=== PATIENT | male | born 1995 | race Caucasian/White ===

== ENCOUNTER 2019-05-16 19:46 | Emergency (ER) | payer MEDICAID ==
[~2019-05-16] VITALS: Ht 185.4 cm; Wt 95.0 kg
--- NOTE | 2019-05-16 20:25 | NUR ---
RN spoke to patient with [employer] process owner, Tariq. Patient has been at [facility] for 2-3 days and feeling stressed and anxious. Patient there for meth use but states he last used 1 month ago. Patient and [facility] Tariq stated patient has been through a lot of trauma but would now elaborate. Patient's mother is homeless and patient was living with his grandparents but states they never interacted with him. He said the don't "fucking love me or care about me." Patient has anxiety. Patient states he is here because he told a fellow resident at [facility] that sometimes he feels suicidal. Patient denies suicidal ideation now and states he has never attempted to harm himself. Patient states he is not on any meds. Patient was hospitalized once and they had him on Vistaril for anxiety. RN rec'd an order for Vistaril from Dr García. Continue to monitor.
[2019-05-16 21:39] LABS: URINE AMPHETAMINE SCREEN NEGATIVE (Neg); URINE BARBITUATE SCREEN NEGATIVE (Neg); URINE BENZODIAZEPINES SCREEN NEGATIVE (Neg); URINE CANNABINOID SCREEN NEGATIVE (Neg); URINE COCAINE SCREEN NEGATIVE (Neg); URINE METHADONE SCREEN NEGATIVE (Neg); URINE OPIATE SCREEN NEGATIVE (Neg); URINE PHENCYCLIDINE SCREEN NEGATIVE (Neg)
--- NOTE | 2019-05-16 21:40 | NUR ---
Patient fell asleep. No distress observed. Continue to monitor.
[2019-05-16 21:49] LABS: BASOPHILS % (AUTO) 0.4 % (0-1); EOSINOPHILS # (AUTO) 0.3 X10'3 (0-0.9); EOSINOPHILS % (AUTO) 2.7 % (0-6); HEMATOCRIT 42.6 % (42.0-52.0); HEMOGLOBIN 14.6 g/dl (14.0-17.9); LYMPHOCYTES # (AUTO) 3.2 X10'3 (1.1-4.8); LYMPHOCYTES % (AUTO) 34.3 % (21-51); MEAN CORPUSCULAR HEMOGLOBIN 30.1 PG (27.0-31.0); MEAN CORPUSCULAR HGB CONC 34.3 g/dL (33.0-36.5); MEAN CORPUSCULAR VOLUME 87.7 FL (78-98); MEAN PLATELET VOLUME 8.7 FL (7.4-10.4); MONOCYTES # (AUTO) 0.6 X10'3 (0-0.9); MONOCYTES % (AUTO) 6.7 % (2-12); NEUTROPHILS # (AUTO) 5.2 X10'3 (1.8-7.7); NEUTROPHILS % (AUTO) 55.9 % (42-75); PLATELET COUNT 250 X10'3 (140-440); RED BLOOD COUNT 4.85 X10'6 (4.70-6.10); WHITE BLOOD COUNT 9.4 X10'3 (4.5-11.0)
[2019-05-16 21:57] LABS: ALANINE AMINOTRANSFERASE 22 U/L (12-78); ALBUMIN/GLOBULIN RATIO 1.3 (1.1-1.5); ALKALINE PHOSPHATASE 53 IU/L (46-116); ANION GAP 8 (8-16); ASPARTATE AMINO TRANSFERASE 13 U/L (10-37); BILIRUBIN,TOTAL 0.1 MG/DL (0.1-1.0); BLOOD UREA NITROGEN 13 MG/DL (7-18); CALCIUM 8.9 MG/DL (8.5-10.1); CHLORIDE 106 MMOL/L (99-107); CREATININE 0.93 MG/DL (0.60-1.10); GLUCOSE 92 MG/DL (70-104); POTASSIUM 3.8 MMOL/L (3.5-5.1); SODIUM 142 MMOL/L (135-145); TOTAL CARBON DIOXIDE 28.1 MMOL/L (24-32); TOTAL PROTEIN 7.2 G/DL (6.4-8.2); eGFR > 90 ML/MIN
[2019-05-16 22:04] LABS: ETHANOL < 0.010 GM/DL (0.0-0.010)
[2019-05-16 22:08] LABS: ACETAMINOPHEN < 2.0 UG/ML (10-30)
--- NOTE | 2019-05-16 23:20 | NUR ---
Patient continues to sleep. No restlessness/distress observed. Continue to monitor.
--- NOTE | 2019-05-17 00:31 | NUR ---
Unable to fax packet to [facility] as pt's documentation not updated.
--- NOTE | 2019-05-17 01:01 | NUR ---
Patient sleeping supine. No restlessness observed. Continue to monitor.
--- NOTE | 2019-05-17 03:33 | NUR ---
Patient sleeping supine. No distress observed. Continue to monitor.
--- NOTE | 2019-05-17 05:04 | NUR ---
Patient sleeping on right side. No restless/distress observed. Continue to monitor.
[2019-05-17 05:45] VITALS: BP 112/61
--- NOTE | 2019-05-17 05:50 | NUR ---
Patient awoken for vital signs and talking to his neighbor. Patient wants medication for anxiety/sleep. Continue to monitor.
--- NOTE | 2019-05-17 06:28 | NUR ---
Packet sent to [facility]. Unable to confirm receipt of packet as out of business hours.
--- NOTE | 2019-05-17 06:38 | NUR ---
received report on this patient, patient currently in bed and randomnly yells out or talks to the next door patient through the curtain.
[2019-05-17] MEDS: hydrOXYzine 25 MG tablet PO PRN ×2 (10:03→17:10)
== END 2019-05-17 17:44 | disposition home or self-care (01) ==
LOC: ER 19:47
DX: R45.851 Suicidal ideations (principal); F32.9 Major depressive disorder, single episode, unspecified; F41.9 Anxiety disorder, unspecified; F29 Unspecified psychosis not due to a substance or known physiological condition; F17.200 Nicotine dependence, unspecified, uncomplicated; F15.90 Other stimulant use, unspecified, uncomplicated
CPT/HCPCS: 36415; 80053; 80305; 80320; 80329; 84443; 85025; 99284; Q0177; Z7610

== ENCOUNTER 2019-05-26 11:26 | Emergency (ER) | payer MEDICAID ==
[~2019-05-26] VITALS: Ht 188 cm; Wt 97.7 kg
[2019-05-26 11:49] VITALS: BP 147/76
[2019-05-26] MEDS ORDERED: azithromycin 250mg tablet PO ONE (12:35)
[2019-05-26] MEDS: penicillin G benzathine 1.2 million unit/2ml syringe IM SCH ×2 (12:40→12:57)
--- NOTE | 2019-05-26 12:44 | NUR ---
ASKED PATIENT NOT TO VAPE INSIDE THE HOSPITAL
[2019-05-26] MEDS ORDERED: DOXY100C43 PO (12:46)
[2019-05-26 13:13] LABS: CLARITY,URINE CLEAR (Clear); COLOR,URINE YELLOW (Yellow); GLUCOSE, URINE NEGATIVE (Neg); KETONES,URINE NEGATIVE (Neg); LEUKOCYTE ESTERASE ,URINE NEGATIVE (Neg); NITRITES, URINE NEGATIVE (Neg); OCCULT BLOOD,URINE NEGATIVE (Neg); PROTEIN,URINE NEGATIVE (Neg); UROBILINOGEN,URINE 0.2 E.U/dL (0.2-1.0)
[2019-05-26 13:18] LABS: UA COLLECTION TYPE CLN CATCH MIDSTREAM
--- NOTE | 2019-05-26 13:50 | NUR ---
PT REFUSED LAB DRAWS.
== END 2019-05-26 13:53 | disposition home or self-care (01) ==
LOC: ER 11:27
DX: R21 Rash and other nonspecific skin eruption (principal); F41.9 Anxiety disorder, unspecified; F32.9 Major depressive disorder, single episode, unspecified; F15.90 Other stimulant use, unspecified, uncomplicated; Z79.2 Long term (current) use of antibiotics
CPT/HCPCS: 36415; 81003; 87491; 87591; 99283; J0561

== ENCOUNTER 2019-07-24 12:51 | Emergency (ER) | payer MEDICAID ==
[~2019-07-24] VITALS: Ht 185.4 cm; Wt 99.0 kg
[2019-07-24] MEDS ORDERED: CIPR10DR LEFT EAR (14:05)
[2019-07-24 14:27] VITALS: BP 105/45
== END 2019-07-24 14:28 | disposition home or self-care (01) ==
LOC: ER 12:51
DX: H72.92 Unspecified perforation of tympanic membrane, left ear (principal); F41.9 Anxiety disorder, unspecified; F32.9 Major depressive disorder, single episode, unspecified; F15.90 Other stimulant use, unspecified, uncomplicated; Z79.899 Other long term (current) drug therapy
CPT/HCPCS: 99283

== ENCOUNTER 2019-11-12 11:46 | Emergency (ER) | payer MEDICAID ==
[~2019-11-12] VITALS: Ht 188 cm; Wt 99.8 kg
[2019-11-12 11:59] VITALS: BP 127/83
[2019-11-12] MEDS ORDERED: ibuprofen tablet 400 MG TABLET PO ONE (13:30)
[2019-11-12] MEDS ORDERED: IBUP-1984 PO (13:35)
== END 2019-11-12 13:59 | disposition home or self-care (01) ==
LOC: ER 11:47
DX: M79.642 Pain in left hand (principal); F41.9 Anxiety disorder, unspecified; F32.9 Major depressive disorder, single episode, unspecified; F15.90 Other stimulant use, unspecified, uncomplicated; Z79.899 Other long term (current) drug therapy
CPT/HCPCS: 99282

== ENCOUNTER 2019-11-14 00:42 | Emergency (ER) | payer MEDICAID ==
[~2019-11-14] VITALS: Ht 188 cm; Wt 100.9 kg
[~2019-11-14 00:42] MED LIST: IBUP-1984 PO
[2019-11-14 00:47] VITALS: BP 134/86
[2019-11-15] MEDS ORDERED: BENZ-16 PO (13:46)
== END 2019-11-14 01:13 | disposition home or self-care (01) ==
LOC: ER 00:42
DX: Z00.00 Encounter for general adult medical examination without abnormal findings (principal); F15.90 Other stimulant use, unspecified, uncomplicated; Z79.899 Other long term (current) drug therapy
CPT/HCPCS: 99281

== ENCOUNTER 2019-11-14 15:23 | Emergency (ER) | payer MEDICAID ==
[~2019-11-14] VITALS: Ht 188 cm; Wt 100.9 kg
[2019-11-14 15:46] VITALS: BP 128/75
[2019-11-15] MEDS ORDERED: BENZ-16 PO (13:46)
== END 2019-11-14 16:25 | disposition home or self-care (01) ==
LOC: ER 15:24
DX: S90.822A Blister (nonthermal), left foot, initial encounter (principal); F41.9 Anxiety disorder, unspecified; F32.9 Major depressive disorder, single episode, unspecified; F29 Unspecified psychosis not due to a substance or known physiological condition; F15.90 Other stimulant use, unspecified, uncomplicated; Z79.899 Other long term (current) drug therapy; X58.XXXA Exposure to other specified factors, initial encounter; Y93.89 Activity, other specified; Y92.89 Other specified places as the place of occurrence of the external cause; Y99.8 Other external cause status
CPT/HCPCS: 99283

== ENCOUNTER 2019-11-15 10:00 | Emergency (ER) | payer MEDICAID ==
[~2019-11-15] VITALS: Ht 188 cm; Wt 99.0 kg
--- NOTE | 2019-11-15 11:00 | NUR ---
PT CALLED, NOT IN LOBBY.
[2019-11-15] MEDS ORDERED: ibuprofen tablet 400 MG TABLET PO ONE (11:45)
[2019-11-15] MEDS ORDERED: BENZ-16 PO (13:46)
[2019-11-15 13:56] VITALS: BP 139/75
== END 2019-11-15 14:17 | disposition home or self-care (01) ==
LOC: ER 10:01
DX: J10.1 Influenza due to other identified influenza virus with other respiratory manifestations (principal); F41.9 Anxiety disorder, unspecified; F32.9 Major depressive disorder, single episode, unspecified; F17.200 Nicotine dependence, unspecified, uncomplicated; F15.90 Other stimulant use, unspecified, uncomplicated; Z79.899 Other long term (current) drug therapy
CPT/HCPCS: 71046; 87502; 87503; 99284

== ENCOUNTER 2019-11-17 08:24 | Emergency (ER) | payer MEDICAID ==
[~2019-11-17] VITALS: Ht 188 cm; Wt 99.5 kg
[~2019-11-17 08:24] MED LIST changes: +BENZ-16 PO
[2019-11-17 08:29] VITALS: BP 134/80
[2019-11-17] MEDS ORDERED: LORazepam 1 MG tablet PO ONE (09:00)
[2019-11-17] MEDS ORDERED: LIDOcaine 1% W/epiNEPHrine 1:100,000 20ml vial SQ ONE (09:25)
== END 2019-11-17 10:00 | disposition home or self-care (01) ==
LOC: ER 08:25
DX: S62.301A Unspecified fracture of second metacarpal bone, left hand, initial encounter for closed fracture (principal); F41.9 Anxiety disorder, unspecified; F32.9 Major depressive disorder, single episode, unspecified; F29 Unspecified psychosis not due to a substance or known physiological condition; F15.90 Other stimulant use, unspecified, uncomplicated; Z79.899 Other long term (current) drug therapy; W22.01XA Walked into wall, initial encounter; Y93.89 Activity, other specified; Y92.89 Other specified places as the place of occurrence of the external cause; Y99.8 Other external cause status
CPT/HCPCS: 26742; 73130; 99284

== ENCOUNTER 2019-11-23 11:32 | Emergency (ER) | payer MEDICAID ==
[~2019-11-23] VITALS: Ht 188 cm; Wt 99.0 kg
[~2019-11-23 11:32] MED LIST changes: -IBUP-1984 PO
[2019-11-23 11:35] VITALS: BP 151/81
--- NOTE | 2019-11-23 12:26 | NUR ---
Pt wants [facility].
== END 2019-11-23 12:55 | disposition home or self-care (01) ==
LOC: ER 11:32
DX: Z02.79 Encounter for issue of other medical certificate (principal); F15.90 Other stimulant use, unspecified, uncomplicated; F41.9 Anxiety disorder, unspecified; F32.9 Major depressive disorder, single episode, unspecified; Z98.890 Other specified postprocedural states
CPT/HCPCS: 99281

== ENCOUNTER 2019-11-27 07:45 | Emergency (ER) | payer MEDICAID ==
[~2019-11-27] VITALS: Ht 190.5 cm; Wt 100.0 kg
[2019-11-27 07:49] VITALS: BP 147/80
[2019-11-27] MEDS ORDERED: AZIT250T PO (08:16)
== END 2019-11-27 08:26 | disposition home or self-care (01) ==
LOC: ER 07:45
DX: J40 Bronchitis, not specified as acute or chronic (principal); F41.9 Anxiety disorder, unspecified; F32.9 Major depressive disorder, single episode, unspecified; F29 Unspecified psychosis not due to a substance or known physiological condition; F15.90 Other stimulant use, unspecified, uncomplicated; Z60.2 Problems related to living alone; Z79.2 Long term (current) use of antibiotics; Z79.899 Other long term (current) drug therapy
CPT/HCPCS: 99283

== ENCOUNTER 2019-12-14 09:37 | Emergency (ER) | payer MEDICAID ==
[~2019-12-14] VITALS: Ht 190.5 cm; Wt 100.0 kg
[2019-12-14 09:38] VITALS: BP 127/73
[2019-12-14] MEDS ORDERED: ibuprofen tablet 400 MG TABLET PO ONE (09:50)
[2019-12-14] MEDS ORDERED: IBUP-1984 PO (10:07)
== END 2019-12-14 10:10 | disposition home or self-care (01) ==
LOC: ER 09:38
DX: R51 Headache (principal); M79.10 Myalgia, unspecified site; F41.9 Anxiety disorder, unspecified; F32.9 Major depressive disorder, single episode, unspecified; F15.90 Other stimulant use, unspecified, uncomplicated; Z59.0 Homelessness
CPT/HCPCS: 99283

== ENCOUNTER 2020-01-02 20:55 | Emergency (ER) | payer MEDICAID ==
[~2020-01-02] VITALS: Ht 190.5 cm; Wt 96.4 kg
[~2020-01-02 20:55] MED LIST changes: -BENZ-16 PO; +IBUP-1984 PO
[2020-01-02 20:58] VITALS: BP 133/83
[2020-01-02] MEDS ORDERED: NAPR-996 PO (21:14)
[2020-01-02] MEDS ORDERED: CLOT15CR10 TP (21:14)
[2020-01-02] MEDS ORDERED: ketorolac trometh inj. 60 MG/2 ML VIAL IM ONE (21:15)
--- NOTE | 2020-01-02 21:38 | NUR ---
Pt assessed and treated by Provider. Pt discharged prior to [facility]. [facility]
== END 2020-01-02 21:38 | disposition home or self-care (01) ==
LOC: ER 20:55
DX: R10.31 Right lower quadrant pain (principal); B35.3 Tinea pedis; F41.9 Anxiety disorder, unspecified; F32.9 Major depressive disorder, single episode, unspecified; F17.200 Nicotine dependence, unspecified, uncomplicated; F15.90 Other stimulant use, unspecified, uncomplicated; Z59.0 Homelessness; Z79.899 Other long term (current) drug therapy
CPT/HCPCS: 96372; 99283; J1885

== ENCOUNTER 2020-04-19 19:31 | Emergency (ER) | payer MEDICAID ==
[~2020-04-19] VITALS: Ht 185.4 cm; Wt 105.0 kg
[~2020-04-19 19:31] MED LIST changes: +CLOT15CR10 TP; -IBUP-1984 PO; +NAPR-996 PO
[2020-04-19 19:36] VITALS: BP 141/91
[2020-04-19 20:06] LABS: CLARITY,URINE CLEAR (Clear); COLOR,URINE YELLOW (Yellow); GLUCOSE, URINE NEGATIVE (Neg); KETONES,URINE NEGATIVE (Neg); LEUKOCYTE ESTERASE ,URINE NEGATIVE (Neg); NITRITES, URINE NEGATIVE (Neg); OCCULT BLOOD,URINE NEGATIVE (Neg); PH,URINE 7.5 (4.8-8.0); PROTEIN,URINE NEGATIVE (Neg); UROBILINOGEN,URINE 0.2 E.U/dL (0.2-1.0)
[2020-04-19 20:19] LABS: UA COLLECTION TYPE CLN CATCH MIDSTREAM
[2020-04-19] MEDS ORDERED: azithromycin 250mg tablet PO ONE ×2 (21:20→21:40)
[2020-04-19] MEDS ORDERED: penicillin G benzathine 1.2 million unit/2ml syringe IM ONE (21:20)
[2020-04-19] MEDS ORDERED: CefTRIAXone 250MG IM Kit w/LIDOcaine IM ONE (21:20)
== END 2020-04-19 21:54 | disposition home or self-care (01) ==
LOC: ER 19:32
DX: A64 Unspecified sexually transmitted disease (principal); N48.89 Other specified disorders of penis; F41.9 Anxiety disorder, unspecified; F32.9 Major depressive disorder, single episode, unspecified; F15.90 Other stimulant use, unspecified, uncomplicated; Z59.0 Homelessness; Z79.899 Other long term (current) drug therapy
CPT/HCPCS: 36415; 81003; 86592; 87491; 87591; 96372; 99284; J0561; J0696

== ENCOUNTER 2020-05-07 11:47 | Emergency (ER) | payer MEDICAID ==
[~2020-05-07] VITALS: Ht 188 cm; Wt 104.5 kg
[2020-05-07 12:04] VITALS: BP 130/76
== END 2020-05-07 14:30 | disposition home or self-care (01) ==
LOC: ER 11:47
DX: F32.9 Major depressive disorder, single episode, unspecified (principal); F15.10 Other stimulant abuse, uncomplicated; F41.9 Anxiety disorder, unspecified; Z59.0 Homelessness; Z79.2 Long term (current) use of antibiotics; Z79.899 Other long term (current) drug therapy; Y90.9 Presence of alcohol in blood, level not specified
CPT/HCPCS: 99281

== ENCOUNTER 2020-05-08 08:58 | Emergency (ER) | payer MEDICAID ==
[~2020-05-08] VITALS: Ht 188 cm; Wt 104.0 kg
[2020-05-08] MEDS ORDERED: CefTRIAXone 1000mg IM Kit (w/lidocaine diluent) IM ONE (09:50)
[2020-05-08] MEDS ORDERED: azithromycin 250mg tablet PO ONE (09:50)
[2020-05-08 10:23] VITALS: BP 129/68
[2020-05-09] MEDS ORDERED: ARIP5TAB14 PO (18:20)
== END 2020-05-08 10:20 | disposition home or self-care (01) ==
LOC: ER 09:00
DX: N34.2 Other urethritis (principal); Z72.51 High risk heterosexual behavior; F41.9 Anxiety disorder, unspecified; F32.9 Major depressive disorder, single episode, unspecified; F29 Unspecified psychosis not due to a substance or known physiological condition; F17.200 Nicotine dependence, unspecified, uncomplicated; F15.90 Other stimulant use, unspecified, uncomplicated; Z59.0 Homelessness; Z79.899 Other long term (current) drug therapy
CPT/HCPCS: 36415; 87491; 87591; 96372; 99283; J0696

== ENCOUNTER 2020-05-09 08:34 | Emergency (ER) | payer MEDICAID ==
[~2020-05-09] VITALS: Ht 188 cm; Wt 106.0 kg
[2020-05-09 09:24] LABS: BASOPHILS % (AUTO) 0.2 % (0-1); EOSINOPHILS # (AUTO) 0.2 X10'3 (0-0.9); EOSINOPHILS % (AUTO) 2.1 % (0-6); HEMATOCRIT 43.2 % (42.0-52.0); HEMOGLOBIN 14.8 g/dl (14.0-17.9); LYMPHOCYTES % (AUTO) 24.2 % (21-51); MEAN CORPUSCULAR HEMOGLOBIN 29.6 PG (27.0-31.0); MEAN CORPUSCULAR HGB CONC 34.2 g/dL (33.0-36.5); MEAN CORPUSCULAR VOLUME 86.4 FL (78-98); MEAN PLATELET VOLUME 8.4 FL (7.4-10.4); MONOCYTES # (AUTO) 0.6 X10'3 (0-0.9); MONOCYTES % (AUTO) 7.6 % (2-12); NEUTROPHILS # (AUTO) 5.6 X10'3 (1.8-7.7); NEUTROPHILS % (AUTO) 65.9 % (42-75); PLATELET COUNT 251 X10'3 (140-440); WHITE BLOOD COUNT 8.4 X10'3 (4.5-11.0)
[2020-05-09 09:31] LABS: ALANINE AMINOTRANSFERASE 37 U/L (12-78); ALBUMIN 3.8 G/DL (3.4-5.0); ALBUMIN/GLOBULIN RATIO 1.1 (1.1-1.5); ALKALINE PHOSPHATASE 55 IU/L (46-116); ANION GAP 6 (8-16); ASPARTATE AMINO TRANSFERASE 22 U/L (10-37); BILIRUBIN,TOTAL 0.3 MG/DL (0.1-1.0); BLOOD UREA NITROGEN 12 MG/DL (7-18); BUN/CREATININE RATIO 11.9 (5.4-32.0); CHLORIDE 103 MMOL/L (99-107); CREATININE 1.01 MG/DL (0.60-1.10); GLUCOSE 83 MG/DL (70-104); POTASSIUM 3.7 MMOL/L (3.5-5.1); SODIUM 141 MMOL/L (135-145); TOTAL CARBON DIOXIDE 32.1 MMOL/L (24-32); TOTAL PROTEIN 7.2 G/DL (6.4-8.2); eGFR > 90 ML/MIN
[2020-05-09 09:41] LABS: ETHANOL < 0.010 GM/DL (0.0-0.010)
[2020-05-09 10:31] LABS: CLARITY,URINE CLEAR (Clear); COLOR,URINE YELLOW (Yellow); GLUCOSE, URINE NEGATIVE (Neg); KETONES,URINE NEGATIVE (Neg); LEUKOCYTE ESTERASE ,URINE NEGATIVE (Neg); NITRITES, URINE NEGATIVE (Neg); OCCULT BLOOD,URINE NEGATIVE (Neg); PH,URINE 7.5 (4.8-8.0); PROTEIN,URINE NEGATIVE (Neg); UA COLLECTION TYPE NON-SPECIFIED; UROBILINOGEN,URINE 0.2 E.U/dL (0.2-1.0)
[2020-05-09 10:35] LABS: URINE AMPHETAMINE SCREEN NEGATIVE (Neg); URINE BARBITUATE SCREEN NEGATIVE (Neg); URINE BENZODIAZEPINES SCREEN POSITIVE (Neg); URINE CANNABINOID SCREEN POSITIVE (Neg); URINE COCAINE SCREEN NEGATIVE (Neg); URINE METHADONE SCREEN NEGATIVE (Neg); URINE OPIATE SCREEN NEGATIVE (Neg); URINE PHENCYCLIDINE SCREEN NEGATIVE (Neg)
--- NOTE | 2020-05-09 10:55 | NUR ---
Pt transferred from ed14 to of26 w/ staff escort.
--- NOTE | 2020-05-09 11:42 | NUR ---
pt resting quietly in bed
--- NOTE | 2020-05-09 12:28 | NUR ---
packet faxed to [facility]
--- NOTE | 2020-05-09 14:00 | NUR ---
pt has been quietly sitting in his room, then after listening to the pt in the next bed over, pt ambulated up to the nurses station desk and asked for more food and sleeping pills. pt redirectable and compliant with request to go back to his bed.
--- NOTE | 2020-05-09 16:27 | NUR ---
behavioral health to release pt, aware. waiting for orders. pt in bed, quiet, no s/s of distress noted
[2020-05-09] MEDS ORDERED: ARIP5TAB14 PO (18:20)
[2020-05-09 19:12] VITALS: BP 119/72
== END 2020-05-09 19:19 | disposition home or self-care (01) ==
LOC: ER 08:34
DX: F32.9 Major depressive disorder, single episode, unspecified (principal); F12.10 Cannabis abuse, uncomplicated; F41.9 Anxiety disorder, unspecified; F29 Unspecified psychosis not due to a substance or known physiological condition; F15.90 Other stimulant use, unspecified, uncomplicated; Z59.0 Homelessness; Z79.899 Other long term (current) drug therapy
CPT/HCPCS: 36415; 80053; 80305; 80320; 81003; 84443; 85025; 99285